=== PATIENT | male | born 1990 | race Two or more races ===

== ENCOUNTER 2023-08-01 20:30 | Emergency (ER) | payer SELFPAY ==
[~2023-08-01] VITALS: Ht 177.8 cm; Wt 72.7 kg
[2023-08-01 21:04] VITALS: BP 108/64; PULSE 90; RESP 15; O2SAT 99
[2023-08-01] MEDS ORDERED: KETOROLAC TROMETH 60MG/2ML VIAL IM ONE (21:30)
[2023-08-01] MEDS ORDERED: DexAMETHasone SOD PHOS 10MG/1ML VIAL INJ IM ONE (21:30)
== END 2023-08-01 21:33 | disposition left against medical advice (07) ==
LOC: ER 20:30
DX: R07.0 Pain in throat (principal); R13.10 Dysphagia, unspecified; Z53.21 Procedure and treatment not carried out due to patient leaving prior to being seen by health care provider